=== PATIENT | female | born 1955 ===

== ENCOUNTER 2020-08-01 10:28 | Emergency (ER) | payer OTHER, SELFPAY ==
[2020-08-01 10:32] VITALS: BP 229/95; PULSE 93; RESP 16; TEMP 36.7; O2SAT 98; BMI 37.8
--- NOTE | 2020-08-01 10:37 | ED_ITS ---
HPI - Epistaxis General Chief complaint: Nasal Problem Stated complaint: BLOODY NOSE Time Seen by Provider: 08/01/20 10:30 Source: patient and family Mode of arrival: Ambulatory Limitations: no limitations History of Present Illness HPI Narrative: 64-year-old female nonsmoker on Plavix presents with her daughter and a chief complaint of a spontaneous left-sided nosebleed that started just prior to arrival. She denies any dizziness, weakness or lightheadedness. She denies any chest pain or shortness of breath. She denies any injury. She attempted to control it by leaning forward and pinching but it continues to bleed none the less. MD complaint: epistaxis Location: left nostril Onset (ago): minute(s) Duration: constant Context: other anticoagulant use Treatment prior to arrival: nose pinching Related Data Allergies Allergy/AdvReac Type Severity Reaction Status Date / Time No Known Drug Allergies Allergy Verified 08/01/20 10:40 Review of Systems Constitutional Constitutional: Denies chills, Denies fatigue, Denies fever(s), Denies frequent falls, Denies lethargy and Denies weakness Eyes Eyes: Denies change in vision, Denies eye discharge, Denies irritation and Denies loss of vision ENT Ears, Nose, Mouth, and Throat: Denies change in voice, Denies dizziness, Reports epistaxis, Denies neck pain, Denies sore throat and Denies throat swelling Cardiovascular Cardiovascular: Denies chest pain, Denies irregular heart rhythm, Denies lightheadedness, Denies palpitations, Denies dyspnea, Denies dyspnea on exertion and Denies orthopnea Respiratory Respiratory: Denies cough, Denies dyspnea, Denies dyspnea on exertion and Denies wheezing Gastrointestinal Gastrointestinal: Denies abdominal pain, Denies change in bowel habits, Denies diarrhea, Denies nausea and Denies vomiting Musculoskeletal Musculoskeletal: Denies neck pain and Denies numbness Integumentary/Breasts Skin/Breast: Denies pruritus, Denies erythema, Denies rash and Denies wounds Neurologic Neurologic: Denies behavioral changes, Denies confusion, Denies dizziness, Denies frequent falls, Denies loss of vision, Denies numbness and Denies weakness Psychiatric Psychiatric: Denies anxiety, Denies behavioral changes, Denies confusion, Denies depression, Denies homicidal ideation and Denies suicidal ideation Endocrine Endocrine: Denies fatigue, Denies flushing and Denies palpitations Hematologic/Lymphatic Hematologic/Lymphatic: Denies easy bruising Allergic/Immunologic Allergic/Immunologic: Denies urticaria, Denies throat swelling and Denies wheezing Patient History Social History Smoking Status: Unknown if ever smoked Smoking Status: Never smoker alcohol intake frequency: 0-2 drinks per day Exam Narrative Exam Narrative: GENERAL: [64] year old patient appears stated age. Well- nourished, well-developed patient, in mild distress. Anxious, active bleeding, patient pinching her nose with dried blood on her face HEAD: Atraumatic. Normocephalic. EYES: Pupils equal round and reactive. Extraocular motions intact. No scleral icterus. No injection or drainage. ENT: Fresh clots noted in left Vilch[place], source of active bleeding not visualized. Throat without erythema, tonsillar hypertrophy or exudate. Airway patent. NECK: Trachea midline. Non tender CARDIOVASCULAR: Regular rate and rhythm without murmurs, gallops, or rubs. RESPIRATORY: Clear to auscultation. Breath sounds equal bilaterally. No wheezes, rales, or rhonchi. GASTROINTESTINAL: Abdomen soft, non-tender, nondistended. EXTREMITIES: No edema or joint tenderness. BACK: Nontender without deformity or crepitance. No flank tenderness. NEURO: AOx3. SKIN: No rash or erythema of visible areas Initial Vital Signs Initial Vital Signs: Vital Signs Temperature 98.1 F 08/01/20 10:32 Pulse Rate 93 H 08/01/20 10:32 Respiratory Rate 16 08/01/20 10:32 Blood Pressure 229/95 H 08/01/20 10:32 Pulse Oximetry 98 08/01/20 10:32 Procedures Epistaxis Control Time Out Performed: No Nostril: left Direct Inspection: yes and unable to visualize Clots Removed by: blowing nose and suction Device Inserted: hemostatic balloon Device Size: 5 Patient Tolerated Procedure: well Course Orders Ordered: Discontinued Medications Tranexamic Acid (Tranexamic Acid 1,000 Mg Vial) 1,000 mg MM NOW ONE Stop: 08/01/20 10:39 Last Admin: 08/01/20 10:55 Dose: 1,000 mg Documented by: JORGE L Vital Signs Vital signs: Vital Signs - 8 hr 08/01/20 10:32 08/01/20 11:30 Temperature 98.1 F Pulse Rate 93 H 76 Respiratory Rate 16 16 Blood Pressure 229/95 H 197/77 H Pulse Oximetry 98 100 Discharge Plan Departure Patient Disposition: Home Clinical Impression: Epistaxis Instructions: DI for Nosebleed Activity Restrictions/Additional Instructions: *You have been diagnosed with [ epistaxis ] *What to do: *Please continue to take medications as directed *Follow up with [facility], call Monday for an appointment. Let them know you were seen in the Emergency Department and that we ask that you be seen in follow up *Return to ER if you should have any new, worsening or concerning symptoms, such as [ increased bleeding, pain, fever > 101F or other bothersome symptoms] Referrals: Jass Briceno MD [Physician] -
[2020-08-01] MEDS: TRANEXAMIC ACID 1,000 MG VIAL 1000 MG MM (10:55)
[2020-08-01 11:30] VITALS: BP 197/77; PULSE 76; RESP 16; O2SAT 100
== END 2020-08-01 11:52 | disposition home or self-care (01) ==
PROVIDERS: Emergency Provider Emergency Medicine
DX: R04.0 Epistaxis (principal)
CPT/HCPCS: 30901; 99281; 99283